=== PATIENT | female | born 1995 | race Two or more races ===

== ENCOUNTER 2019-06-24 00:08 | Emergency (ER) | payer BC ==
[~2019-06-24] VITALS: Ht 157.5 cm; Wt 65.6 kg
--- NOTE | 2019-06-24 00:36 | NUR ---
Pt in us at this time.
[2019-06-24 00:38] LABS: BASOPHILS # (AUTO) 0.06 x10^3/uL (0-0.1); BASOPHILS % (AUTO) 1 % (0-1); EOSINOPHILS # (AUTO) 0.56 x10^3/uL (0-0.4); EOSINOPHILS % (AUTO) 7 % (1-7); LYMPHOCYTES # (AUTO) 2.43 x10^3/uL (1-3.4); LYMPHOCYTES % (AUTO) 31 % (22-44); MD NO; MEAN CORPUSCULAR HEMOGLOBIN 32.6 pg (27.0-34.8); MEAN CORPUSCULAR HGB CONC 33.6 g/dL (32.4-35.8); MEAN CORPUSCULAR VOLUME 96.8 fL (80-100); MEAN PLATELET VOLUME 8.9 fL (7.4-10.4); MONOCYTES # (AUTO) 0.67 x10^3/uL (0.2-0.8); MONOCYTES % (AUTO) 9 % (2-9); NEUTROPHILS # (AUTO) 4.14 x10^3/uL (1.8-6.8); NEUTROPHILS % (AUTO) 53 % (42-75); PLATELET COUNT 273 x10^3/uL (130-400); RED BLOOD COUNT 4.02 x10^6/uL (3.82-5.3); RED CELL DISTRIBUTION WIDTH 12.8 % (9.6-15.2)
[2019-06-24 00:48] LABS: ALBUMIN 3.7 g/dL (3.4-5.0); ANION GAP 6 mmol/L (5-15); CALCIUM 8.4 mg/dL (8.5-10.1); CHLORIDE 109 mmol/L (98-107); CREATININE 0.51 mg/dL (0.55-1.02)
[2019-06-24 01:13] VITALS: BP 106/60
[2019-06-24 01:42] LABS: MICROSCOPIC INDICATED
[2019-06-24 01:51] LABS: CULTURE INDICATED? NO
--- NOTE | 2019-06-24 01:55 | NUR ---
PT UP FOR RECHECK AT THIS TIME
== END 2019-06-24 02:11 | disposition home or self-care (01) ==
LOC: ED 02:07
DX: O03.9 Complete or unspecified spontaneous abortion without complication (principal)
CPT/HCPCS: 36415; 76856; 80048; 81001; 82040; 84702; 85025; 86901; 99284